=== PATIENT | male | born 1985 | race Caucasian/White ===

== ENCOUNTER 2021-08-23 02:07 | Emergency (ER) | payer OTHER ==
--- NOTE | 2021-08-23 02:19 | EDM.PDOC ---
ED HPI GENERAL MEDICAL PROBLEM - General Chief Complaint: Upper Extremity Injury/Pain Stated Complaint: FALL Time Seen by Provider: 08/23/21 02:09 - History of Present Illness INITIAL COMMENTS - FREE TEXT/NARRATIVE: History of present illness: [] Patient slipped on the ice and fell. He landed on his back. Right side of his back is painful between his shoulder blades. It is clearly below his C- spine where his pain is. He has no neurologic deficit. He is cold. He was out in the cold weather for quite some time. He had a cell phone and called in when someone came to get him they were able to have him brought to the emergency room by ambulance. Review of systems: As per history of present illness and below otherwise all systems reviewed and negative. Past medical history: As per history of present illness and as reviewed below otherwise noncontributory. Surgical history: As per history of present illness and as reviewed below otherwise noncontributory. Social history: No reported history of drug or alcohol abuse. Family history: As per history of present illness and as reviewed below otherwise noncontributory. Physical exam: Constitutional - well developed, well-nourished and in no acute distress HEENT - normocephalic, no evidence of trauma - external nose and mouth normal - no mass in neck and no JVD - mucosae moist EYES - full EOM, PERRL, no icterus - no evidence of inflammation, injection, or drainage Respiratory - no respiratory distress, equal bilateral expansion, lungs clear to auscultation and no abnormal lung sounds Cardiovascular - Regular Rhythm with S1 and S2 appreciated and no murmur, gallop or rub. GI - abdomen soft without distension or organomegaly - normal bowel sounds - no guard or rebound Musculoskeletal cervical range of motion is normal and there is no step-off or deformity but he has tenderness no gross deformity of long bones or joints - no tenderness, swelling or edema Neurologic - Alert and oriented times four - CN II-XII grossly intact - motor sensory and coordination symmetrically normal Psychiatric - appropriate mood and affect with normal thought content Hematologic - No petechiae or purpura - mucosa appropriate color and sclera not pale - normal nail bed color and refill Integument - no rash or evidence of trauma - normal turgor Diagnostics: [] Therapeutics: [] Impression: [] Plan: [] Definitive disposition and diagnosis as appropriate pending reevaluation and review of above. left shoulder Pain Score (Numeric/FACES): 8 - Related Data Allergies Allergy/AdvReac Type Severity Reaction Status Date / Time No Known Allergies Allergy Verified 08/23/21 02:11 Home Meds: Home Meds Acetaminophen/oxyCODONE [Percocet 325-10 MG] 1 tab PO Q4H PRN #14 tab 08/23/21 [Rx] Review of Systems - Review of Systems Review Of Systems: Comprehensive ROS is negative, except as noted in HPI. ED EXAM, GENERAL - Physical Exam Exam: See Below Free Text/Narrative:: My physical exam is in the HPI Course - Vital Signs Last Recorded V/S: Last Vital Signs Temp 37.0 C 08/23/21 02:10 Pulse 84 08/23/21 03:44 Resp 16 08/23/21 03:44 BP 142/81 H 08/23/21 03:44 Pulse Ox 97 08/23/21 03:44 - Orders/Labs/Meds Orders: Active Orders 24 hr Category Date Time Status Acetaminophen/oxyCODONE [Percocet 325-10 MG] Med 08/23/21 03:50 Once 1 tab PO ONETIME ONE Meds: Medications Discontinued Medications Generic Name Dose Route Start Last Admin Trade Name Freq PRN Reason Stop Dose Admin Ketorolac Tromethamine 30 mg 08/23/21 02:56 08/23/21 03:42 Ketorolac 30 Mg/Ml Sdv IM 08/23/21 02:57 Not Given ONETIME ONE Ketorolac Tromethamine 30 mg 08/23/21 03:39 08/23/21 03:39 Ketorolac 30 Mg/Ml Sdv IVPUSH 08/23/21 03:40 30 mg ONETIME ONE Administration - Re-Assessments/Exams Free Text/Narrative Re-Assessment/Exam: 08/23/21 03:30 CT reveals no spine abnormality but fracture sixth and ninth ribs on the left posteriorly. Departure - Departure Time of Disposition: 03:51 Disposition: Home, Self-Care 01 Condition: Good Clinical Impression: Left rib fracture - Discharge Information Prescriptions: Acetaminophen/oxyCODONE [Percocet 325-10 MG] 1 tab PO Q4H PRN #14 tab PRN Reason: Pain (Severe 7-10) Instructions: Rib Fracture, [id number] Referrals: PCP,None [Primary Care Provider] - Forms: ED Department Discharge Additional Instructions: Cough and deep breathe. [facility] - [facility] [address] [place] [address] [facility] [address] [place] [address] The following information is given to patients seen in the emergency department who are being discharged to home. This information is to outline your options for follow-up care. We provide all patients seen in our emergency department with a follow-up referral. The need for follow-up, as well as the timing and circumstances, are variable depending upon the specifics of your emergency department visit. If you don't have a primary care physician on staff, we will provide you with a referral. We always advise you to contact your personal physician following an emergency department visit to inform them of the circumstance of the visit and for follow-up with them and/or the need for any referrals to a consulting specialist. The emergency department will also refer you to a specialist when appropriate. This referral assures that you have the opportunity for follow-up care with a specialist. All of these measure are taken in an effort to provide you with optimal care, which includes your follow-up. Under all circumstances we always encourage you to contact your private physician who remains a resource for coordinating your care. When calling for follow-up care, please make the office aware that this follow-up is from your recent emergency room visit. If for any reason you are refused follow-up, please contact the [facility] Emergency Department at and asked to speak to the emergency department charge nurse. Sepsis Event Note (ED) - Evaluation Sepsis Screening Result: No Definite Risk - Focused Exam Vital Signs: Vital Signs Temp Pulse Resp BP Pulse Ox 08/23/21 03:44 84 16 142/81 H 97 08/23/21 03:40 90 18 134/80 95 08/23/21 02:10 37.0 C 89 18 152/99 H 95 - My Orders Last 24 Hours: My Active Orders 08/23/21 03:50 Acetaminophen/oxyCODONE [Percocet 325-10 MG] 1 tab PO ONETIME ONE - Assessment/Plan Last 24 Hours: My Active Orders 08/23/21 03:50 Acetaminophen/oxyCODONE [Percocet 325-10 MG] 1 tab PO ONETIME ONE
[2021-08-23] MEDS ORDERED: Ketorolac 30 MG/ML SDV IM ONE (02:56)
--- NOTE | 2021-08-23 03:14 | CT ---
INDICATION: Cervical spine injury, fall TECHNIQUE: CT cervical spine without i.v. contrast. Coronal and sagittal reformats were obtained. COMPARISON: None FINDINGS: Alignment: Unremarkable. Bone: No acute fractures or aggressive bone lesions are identified. Disc: The disc spaces are unremarkable in appearance. The facet joints are unremarkable. Soft tissue: The prevertebral soft tissues are unremarkable in appearance. The visualized lung apices and mediastinum are unremarkable. IMPRESSION: 1. No acute osseous injuries are identified. Please note that all CT scans at this facility use dose modulation, iterative reconstruction, and/or weight-based dosing when appropriate to reduce radiation dose to as low as reasonably achievable. Dictated by: Turner Honeycutt MD @ 08/23/2021 03:12:17 (Electronically Signed)
--- NOTE | 2021-08-23 03:22 | CT ---
INDICATION: Thoracic spine injury, fall TECHNIQUE: CT thoracic spine without i.v. contrast. Coronal and sagittal reformats were obtained. COMPARISON: None FINDINGS: Alignment: Unremarkable. Bone: Fractures of the left posterior 6th-9th ribs are noted. The thoracic spine is unremarkable in appearance Disc: The disc spaces are unremarkable in appearance. The facet joints are unremarkable. Soft tissue: The perivertebral soft tissues are unremarkable in appearance. The visualized lung apices and mediastinum are unremarkable. IMPRESSIONS: 1. No acute osseous injuries are identified in the thoracic spine. 2. Fractures of the left posterior 6th-9th ribs are noted. Dictated by Turner Honeycutt MD @ 08/23/2021 3:20:41 AM Please note that all CT scans at this facility use dose modulation, iterative reconstruction, and/or weight-based dosing when appropriate to reduce radiation dose to as low as reasonably achievable. Dictated by: Turner Honeycutt MD @ 08/23/2021 03:20:46 (Electronically Signed)
[2021-08-23] MEDS ORDERED: Ketorolac 30 MG/ML SDV IVPUSH ONE (03:39)
[2021-08-23] MEDS ORDERED: Acetaminophen/oxyCODONE 325-10 MG Tab PO ONE (03:50)
== END 2021-08-23 06:15 | disposition home or self-care (01) ==
LOC: MW.ED 02:07
DX: S22.42XA Multiple fractures of ribs, left side, initial encounter for closed fracture (principal); W00.0XXA Fall on same level due to ice and snow, initial encounter
CPT/HCPCS: 72125; 72128; 96374; 99284; A9270; J1885